=== PATIENT | female | born 1965 | race Caucasian/White ===

== ENCOUNTER 2017-12-18 09:06 | Day surgery (SDC) | payer BC ==
[~2017-12-18] VITALS: Ht 175.3 cm; Wt 122.3 kg
[2017-12-18] MEDS ORDERED: LACTATED RINGERS 1,000 ML IV SCH (09:44)
[2017-12-18] MEDS ORDERED: ONDA4TAB7 PO (09:49)
[2017-12-18] MEDS ORDERED: HYDR-3237 PO (09:49)
[2017-12-18 10:00] VITALS: BP 120/81
[2017-12-18] MEDS ORDERED: PLEASE ENTER HEIGHT AND WEIGHT MC SCH (10:00)
[2017-12-18] MEDS ORDERED: MIDAZOLAM 1 MG/ML, 2ML ONE (10:41)
[2017-12-18] MEDS ORDERED: FENTANYL PF 250 MCG/5ML ONE (10:41)
[2017-12-18] MEDS ORDERED: DEXAMETHASONE 4 MG/ML, 1ML ONE ×2 (10:44)
[2017-12-18] MEDS ORDERED: ONDANSETRON 2MG/ML, 2ML ONE ×2 (10:44→12:34)
[2017-12-18] MEDS ORDERED: PROPOFOL 10 MG/ML, 20ML ONE (10:44)
[2017-12-18] MEDS ORDERED: ROCURONIUM 10 MG/ML,10ML ONE (10:47)
[2017-12-18] MEDS ORDERED: SODIUM CHLORIDE 0.9% PF 10ML ONE (10:48)
[2017-12-18] MEDS ORDERED: CEFAZOLIN 1,000 MG ONE ×2 (10:48)
[2017-12-18] MEDS ORDERED: NEOSTIGMINE 1 MG/ML, 10ML ONE (10:48)
[2017-12-18] MEDS ORDERED: GLYCOPYRROLATE 0.4 MG/2 ML, 2ML ONE (10:48)
[2017-12-18] MEDS ORDERED: ACETAMINOPHEN 325 MG TABLET PO PRN (11:00)
[2017-12-18] MEDS ORDERED: hydrALAzine 20 MG/ML, 1ML IV PRN (11:00)
[2017-12-18] MEDS ORDERED: LABETALOL 5MG/ML, 20ML IV PRN (11:00)
[2017-12-18] MEDS ORDERED: MEPERIDINE/PF 25MG/0.5ML IVPush PRN (11:00)
[2017-12-18] MEDS ORDERED: ONDANSETRON 2MG/ML, 2ML IVPush PRN (11:00)
[2017-12-18] MEDS ORDERED: PROMETHAZINE 25 MG/ML, 1ML IV PRN (11:00)
[2017-12-18] MEDS ORDERED: HYDROmorphone 1 MG/ML, 1ML IV PRN (11:00)
[2017-12-18] MEDS ORDERED: CIPROFLOXACIN/PMX 400MG/200ML 200 ML ONE (11:15)
[2017-12-18] MEDS ORDERED: OMNIPAQUE 350 MG/ML, 50 ML BOTTLE IV ONE (11:44)
[2017-12-18] MEDS ORDERED: OXYcodone 5 MG/5 ML ORAL.SOL UDC ONE ×2 (12:34→13:22)
[2017-12-18] MEDS ORDERED: ACETAMINOPHEN 650 MG/20.3 ML UDC ONE (12:34)
[2017-12-18] MEDS: OXYcodone 5 MG/5 ML ORAL.SOL UDC PO PRN ×2 (12:47→13:25)
[2017-12-18] MEDS ORDERED: FENTANYL PF 100 MCG/2ML ONE (13:22)
[2017-12-18] MEDS: FENTANYL PF 100 MCG/2ML IV PRN ×2 (13:26→13:32)
[2017-12-18] MEDS ORDERED: morphine SULFATE 10 MG/ML, 1ML ONE (14:25)
[2017-12-18] MEDS: morphine SULFATE 10 MG/ML, 1ML IV PRN ×5 (14:31→16:11)
[2017-12-18] MEDS ORDERED: KETOROLAC 60 MG/2 ML ONE (16:40)
[2017-12-18] MEDS ORDERED: KETOROLAC 30 MG/1 ML IM ONE (17:00)
[2017-12-18] MEDS ORDERED: KETOROLAC 30 MG/1 ML IVPush ONE (17:00)
== END 2017-12-18 17:55 ==
LOC: OUT 09:06
PROVIDERS: ATTEND Urology
DX: N20.0 Calculus of kidney (principal); B20 Human immunodeficiency virus [HIV] disease
CPT/HCPCS: 52356; 74420; C1758; C2617; J0744; J1100; J1885; J2250; J2270; J2405; J2704; J2710; J3010; J7120; Q9967; J0690